=== PATIENT | male | born 1980 | race Asian ===

== ENCOUNTER 2017-01-05 10:45 | Inpatient (IN) | payer MEDICAID, SELFPAY ==
[~2017-01-05] VITALS: Ht 180.3 cm; Wt 76.3 kg
[2017-01-05] MEDS ORDERED: ALBUTEROL SULFATE 2.5 MG/0.5 ML INH NEB SOLN NEB ONE ×2 (11:15→21:15)
[2017-01-05 11:45] LABS: WHITE BLOOD COUNT 11.8 K/mm3 (4.0-10.0)
[2017-01-05 11:46] LABS: ADD MANUAL DIFFER NO; BASO % 0.4 % (0.0-1.0); DIFF SLIDE NUMBER 234; EOS # 0.1 K/mm3 (0.0-0.50); EOS % 0.8 % (0.0-3.0); LARGE UNSTAINED CELL # 0.1 K/mm3 (0.0-0.4); LYMPH # 1.7 K/mm3 (1.5-4.5); MEAN CORPUSCULAR HEMOGLOBIN 33.1 pg (27.0-33.0); MEAN CORPUSCULAR HGB CONC 33.4 g/dl (32.0-36.5); MEAN CORPUSCULAR VOLUME 99.3 fl (80.0-96.0); MONO # 0.5 K/mm3 (0.0-0.8); MONO % 4.4 % (0.0-5.0); NEUTROPHILS # 9.4 K/mm3 (1.8-7.7); NEUTROPHILS % 79.4 % (36.0-66.0); PLATELET COUNT, AUTOMATED 309 k/mm3 (150-450); RED CELL DISTRIBUTION WIDTH 12.9 % (11.5-14.5)
[2017-01-05 11:49] LABS: INR 1.11
--- NOTE | 2017-01-05 11:49 | REP ---
Chest two views HISTORY: Cough Comparison: 10/31/2013 Patchy density is present in the right lower lobe consistent with atelectasis or infiltrate. The left lung is clear. The heart is normal in size. The pulmonary vasculature is normal in appearance. The bony structure is intact. IMPRESSION: Right lower lobe atelectasis or infiltrate. Signed by Claudio Vázquez MD 01/05/2017 11:40 A
[2017-01-05 12:24] LABS: ALBUMIN 3.3 GM/DL (3.2-5.2); ALBUMIN/GLOBULIN RATIO 1.03 (1.00-1.93); ALKALINE PHOSPHATASE 92 U/L (45-117); ALT/SGPT 62 U/L (12-78); ANION GAP 11 MEQ/L (8-16); AST/SGOT 23 U/L (15-37); BILIRUBIN,DIRECT 0.8 MG/DL (0.0-0.2); BILIRUBIN,TOTAL 3.1 MG/DL (0.2-1.0); BLOOD UREA NITROGEN 13 MG/DL (7-18); CALCIUM LEVEL 8.5 MG/DL (8.5-10.1); CARBON DIOXIDE LEVEL 23 MEQ/L (21-32); CHLORIDE LEVEL 108 MEQ/L (98-107); CREATININE FOR GFR 1.15 MG/DL (0.70-1.30); GLOMERULAR FILTRATION RATE > 60.0 (>60); GLUCOSE, FASTING 118 MG/DL (70-105); POTASSIUM SERUM 4.4 MEQ/L (3.5-5.1); SODIUM LEVEL 142 MEQ/L (136-145); THYROXINE (T4) 10.6 UG/DL (4.5-12.0); TOTAL PROTEIN 6.5 GM/DL (6.4-8.2)
[2017-01-05] MEDS ORDERED: ISOVUE-370 76% 100ML VIAL (Q9967) As Ordered ONE (12:52)
--- NOTE | 2017-01-05 13:44 | REP ---
Clinical: Shortness of breath . Technique: Axial contrast enhanced images from the thoracic inlet to the upper abdomen using 100 ml Isovue 370 intravenous contrast material with multiplanar re-formations. Findings: Satisfactory enhancement of the pulmonary vasculature is achieved and no filling defects are identified to suggest pulmonary embolus. Further evaluation of the mediastinum cannot exclude cardiomegaly which may warrant further investigation. The bilateral lung rey demonstrate bilateral scattered alveolar infiltrates suggesting multifocal pneumonia. Associated mediastinal and hilar adenopathy is identified and likely reactive. Tracheobronchial tree is patent. No pleural effusion or pneumothorax. Surrounding musculoskeletal structures are intact. Impression: 1. No evidence for pulmonary embolus. 2. Moderate bilateral diffuse alveolar infiltrates and adenopathy suggest multifocal pneumonia and follow up to resolution is recommended. 3. Cannot exclude cardiomegaly for which consultation may be advised. Signed by Juan Antonio Schuster MD 01/05/2017 01:35 P
[2017-01-05] MEDS ORDERED: ACETAMINOPHEN TAB 650MG DOSE (2X325MG) PO PRN (15:15)
[2017-01-05] MEDS ORDERED: ONDANSETRON 4MG/2ML VIAL (J2405) IV PRN (15:15)
[2017-01-05] MEDS ORDERED: OXAZEPAM 15 MG CAP PO PRN (16:00)
--- NOTE | 2017-01-05 16:00 | HPEPDOC ---
General Date of Admission Jan 05, 2017 at 15:06 Attending Physician: DEBRA AVILA MD Chief Complaint The patient is a 36-year-old male admitted with a reason for visit of Multifocal Pneumonia. History of Present Illness 36-year-old male with no significant past medical history, and has not seen a primary care physician in the last 10+ years presents to the ER with a chief complaint of increased shortness of breath and cough productive of bloody sputum. The patient states that his symptoms began 6 weeks, when he noted feeling generalized fatigue and short of breath on exertion. However, over the last 2 weeks patient also began to notice lower extremity swelling. His symptoms culminated over the last 2 days when he developed a cough productive of bloody tinged sputum. The patient also states that he has been feeling increasingly short of breath when laying flat in bed. During this time, the patient denied any fevers, chills, chest pain, palpitations, abdominal pain, recent travel, sick contacts, or any nausea/vomiting/diarrhea. However, the patient does state that he does drink 1-2 shots of hard liquor and 4-5 beers about 4 times a week. In addition, the patient does state that his father has a history of congestive heart failure diagnosed at the age of 48. He also has a history of cardiac disease on his father's side. In the ER, a CT of the chest revealed multifocal pneumonia. In addition, cardiomegaly could not be ruled out. However, the patient's lab work consisted of a BNP of nearly 1500+, and a physical exam suggestive of fluid overload (2+ lower extremity pitting edema, and faint bibasilar crackles). The patient will be admitted to the hospitalist service for further evaluation and management. Home Medications No Active Prescriptions or Reported Meds Allergies Coded Allergies: No Known Drug Allergy (Verified Allergy, Unknown, 01/10/14) Past Medical History Medical History None Surgical History Tonsillectomy, hernia repair Family History Father diagnosed with congestive heart failure in 2000, at age 48. Grandfather also had cardiac disease history in addition to other members on father's side. Social History * Smoker: other (patient states that he has smoked about half a pack to pack a day of tobacco for the past 10+ years.) Alcohol: other (as noted in HPI.) Drugs: denies Recent Travel/Sick Contacts: Denies: Recent travel, Recent sick contacts Review of Symptoms Other systems 10 point review of systems negative unless otherwise specified in HPI. Physical Examination General Exam: Positive: Alert, Cooperative, No Acute Distress ENT Exam: Positive: Atraumatic, Mucous membr. moist/pink Neck Exam: Negative: JVD Chest Exam: Positive: Rales (faint bibasilar rales noted on auscultation) Heart Exam: Positive: Tachycardic, Normal S1, Normal S2 Telemetry: Positive: Sinus Abdomen Exam: Positive: Soft, Negative: Tenderness Extremity Exam: Positive: Swelling (2+ pitting edema noted from his lower extremities bilaterally.), Negative: Tenderness Psych Exam: Positive: Oriented x 3 Vital Signs Vital Signs Date Time Temp Pulse Resp B/P (MAP) Pulse Ox O2 Delivery O2 Flow Rate FiO2 01/05/17 10:56 01/05/17 10:46 97.2 128 19 100 Room Air Laboratory Data Labs 24H Laboratory Tests 2 01/05/17 11:22: White Blood Count 11.8H, Red Blood Count 5.13, Hemoglobin 17.0, Hematocrit 51.0 , Mean Corpuscular Volume 99.3H, Mean Corpuscular Hemoglobin 33.1H, Mean Corpuscular Hemoglobin Concent 33.4, Red Cell Distribution Width 12.9, Platelet Count 309, Neutrophils (%) (Auto) 79.4H, Lymphocytes (%) (Auto) 14.0L, Monocytes (%) (Auto) 4.4, Eosinophils (%) (Auto) 0.8, Basophils (%) (Auto) 0.4, Neutrophils # (Auto) 9.4H, Lymphocytes # (Auto) 1.7, Monocytes # (Auto) 0.5, Eosinophils # (Auto) 0.1, Basophils # (Auto) 0.0, Large Unclassified Cells % 1.0 , Large Unclassified Cells # 0.1, Prothrombin Time 14.5, Prothromb Time International Ratio 1.11, Anion Gap 11, Glomerular Filtration Rate > 60.0, Lactic Acid Level 2.5*H, Calcium Level 8.5, Aspartate Amino Transf (AST/SGOT) 23 , Alanine Aminotransferase (ALT/SGPT) 62, Alkaline Phosphatase 92, Total Bilirubin 3.1H, Direct Bilirubin 0.8H, Total Creatine Kinase 76, Creatine Kinase MB 2.1, Creatine Kinase MB Relative Index 2.76, Troponin I 0.02, B-Type Natriuretic Peptide 1480H, Total Protein 6.5, Albumin 3.3, Albumin/Globulin Ratio 1.03, Thyroid Stimulating Hormone (TSH) 1.640, Thyroxine (T4) 10.6 01/05/17 13:53: Urine Appearance CLEAR, Urine Color YELLOW, Urine pH 5.0, Urine Specific [place] 1.044, Urine Protein 1+H, Urine Glucose (UA) NEGATIVE, Urine Ketones NEGATIVE, Urine Urobilinogen 0.2, Urine Bilirubin NEGATIVE, Urine Leukocyte Esterase NEGATIVE, Urine Blood NEGATIVE, Urine Nitrite NEGATIVE, Urine WBC (Auto ) 0, Urine RBC (Auto) 0, Urine Hyaline Casts (Auto) 0, Urine Bacteria (Auto) NEGATIVE, Urine Squamous Epithelial Cells 0, Urine Mucus (Auto) SMALL, Urine Sperm (Auto) 01/05/17 15:26: CBC/BMP Laboratory Tests 01/05/17 11:22 Red Blood Count 5.13, Mean Corpuscular Volume 99.3 H, Mean Corpuscular Hemoglobin 33.1 H, Mean Corpuscular Hemoglobin Concent 33.4, Red Cell Distribution Width 12.9, Neutrophils (%) (Auto) 79.4 H, Lymphocytes (%) (Auto) 14.0 L, Monocytes (%) (Auto) 4.4, Eosinophils (%) (Auto) 0.8, Basophils (%) ( Auto) 0.4, Neutrophils # (Auto) 9.4 H, Lymphocytes # (Auto) 1.7, Monocytes # ( Auto) 0.5, Eosinophils # (Auto) 0.1, Basophils # (Auto) 0.0 Microbiology Microbiology 01/05/17 Blood Culture, Received Pending Plan / VTE VTE Prophylaxis Ordered?: Yes Plan Plan Multifocal Community-acquired pneumonia CTA of the chest noted Sputum cultures, MRSA screen, respiratory panel, urine Legionella/strep screening ordered Blood cultures ordered We will start the patient on Rocephin and azithromycin We will continue to monitor the patient's clinical status Possible underlying CHF The patient does have evidence of decompensated congestive heart failure on physical exam, as well as his clinical presentation. The patient does have risk factors which include family history of early onset cardiac disease, alcohol abuse, and history of tobacco use I will start him on a dose of Lasix 40 mg daily, which can be uptitrated as tolerated EKG in the ER reveals sinus tachycardia and nonspecific ST changes Initial troponin negative, we will serially trend 2-D echocardiogram ordered We will continue to monitor the patient on telemetry for now Alcohol use The patient states that he drinks 1-2 shots of hard liquor, with 4-5 beers most days of the week. His last alcoholic beverage was 24 hours ago, the patient denies any signs/ symptoms or history of alcohol withdrawal We will add when necessary Serax DVT prophylaxis Lovenox The patient will be admitted under the service of Dr. Avila, who will begin to follow the patient on 01/06/17 at 7 AM. LIZBETH DEWITT MD Jan 05, 2017 16:00
[2017-01-05] MEDS: FUROSEMIDE 40 MG TAB PO SCH (16:12)
[2017-01-05] MEDS: AZITHROMYCIN INJ 500 MG, VIAL MATE ADAPTER 1 EACH in D5W 250 ML IV SCH (16:12)
[2017-01-05 18:00] VITALS: BP 112/78
[2017-01-05] MEDS: cefTRIAXone SOD 1 GM in D5W MINI-BAG PLUS 50 ML IV SCH (18:17)
--- NOTE | 2017-01-05 18:31 | ECGEPIP ---
Stationary ECG Study [facility] - ED Test Date: 2017-01-05 Pat Name: ARTUR HWANG Department: Room: - Gender: M Hobber: : 1980 Requested By: CRISTY ROD PA-C Order Number: [id number] Reading MD: Gomez High Measurements Intervals [place] Rate: 124 P: 35 RI: 112 QRS: 91 QRSD: 102 T: -37 QT: 337 QTc: 484 Interpretive Statements SINUS TACHYCARDIA WITH SHORT RI INTERVAL LAE BORDERLINE RIGHT AXIS DEVIATION SEPTAL MYOCARDIAL INFARCTION, OF INDETERMINATE AGE NO PRIORS Electronically Signed On 01-05-2017 18:30:52 EDT by Gomez High
[2017-01-05 20:29] VITALS: BP 125/93
[2017-01-05 23:59] VITALS: BP 133/94
[2017-01-06] VITALS (9 sets, daily range): BP systolic 123–133; BP diastolic 73–94; PULSE 113
[2017-01-06] MEDS: cefTRIAXone SOD 1 GM in D5W MINI-BAG PLUS 50 ML IV SCH ×2 (05:06→17:10)
[2017-01-06 05:53] LABS: BASO # 0.1 K/mm3 (0.0-0.2); BASO % 0.6 % (0.0-1.0); EOS # 0.1 K/mm3 (0.0-0.50); EOS % 0.9 % (0.0-3.0); LARGE UNSTAINED CELL # 0.1 K/mm3 (0.0-0.4); LARGE UNSTAINED CELL % 1.3 % (0.0-4.0); LYMPH # 2.9 K/mm3 (1.5-4.5); LYMPH % 25.7 % (24.0-44.0); MEAN CORPUSCULAR HEMOGLOBIN 32.3 pg (27.0-33.0); MEAN CORPUSCULAR HGB CONC 32.2 g/dl (32.0-36.5); MEAN CORPUSCULAR VOLUME 100.4 fl (80.0-96.0); MONO # 0.6 K/mm3 (0.0-0.8); MONO % 5.9 % (0.0-5.0); NEUTROPHILS % 65.6 % (36.0-66.0); PLATELET COUNT, AUTOMATED 269 k/mm3 (150-450); RED CELL DISTRIBUTION WIDTH 13.2 % (11.5-14.5); WHITE BLOOD COUNT 10.6 K/mm3 (4.0-10.0)
[2017-01-06 06:13] LABS: ALBUMIN/GLOBULIN RATIO 0.94 (1.00-1.93); ALKALINE PHOSPHATASE 76 U/L (45-117); ALT/SGPT 47 U/L (12-78); ANION GAP 13 MEQ/L (8-16); AST/SGOT 15 U/L (15-37); BILIRUBIN,TOTAL 2.4 MG/DL (0.2-1.0); BLOOD UREA NITROGEN 14 MG/DL (7-18); CALCIUM LEVEL 8.4 MG/DL (8.5-10.1); CARBON DIOXIDE LEVEL 21 MEQ/L (21-32); CHLORIDE LEVEL 107 MEQ/L (98-107); CREATININE FOR GFR 1.15 MG/DL (0.70-1.30); GLOMERULAR FILTRATION RATE > 60.0 (>60); GLUCOSE, FASTING 93 MG/DL (70-105); MAGNESIUM LEVEL 1.9 MG/DL (1.8-2.4); POTASSIUM SERUM 4.5 MEQ/L (3.5-5.1); SODIUM LEVEL 141 MEQ/L (136-145); T UPTAKE 40 % (33-40); THYROXINE (T4) 8.2 UG/DL (4.5-12.0); TOTAL PROTEIN 6.2 GM/DL (6.4-8.2)
[2017-01-06] MEDS: FUROSEMIDE 40 MG TAB PO SCH (09:13)
[2017-01-06] MEDS: ENOXAPARIN 40 MG/0.4 ML SYRINGE (J1650) SC SCH (09:15)
[2017-01-06] MEDS ORDERED: SLF 3 ML SYR IV PRN (10:30)
[2017-01-06] MEDS ORDERED: NITROGLYCERIN 0.4 MG SUBL TABLET SL STA (10:58)
[2017-01-06] MEDS ORDERED: MAG SULF 1GM/100ML (MAG RUN) 1 GM in APPROPRIATE DILUENT 1 EA IV ONE ×2 (11:00→17:15)
[2017-01-06] MEDS ORDERED: FUROSEMIDE 40 MG/4 ML VIAL (J1940) IV SCH (11:00)
[2017-01-06] MEDS ORDERED: NITROGLYCERIN 0.4 MG SUBL TABLET SL PRN (11:00)
[2017-01-06] MEDS: SLF 3 ML SYR IV SCH (11:28)
--- NOTE | 2017-01-06 11:41 | REP ---
Clinical: Chest pain Comparison: 01/05/2017 . Findings: The mediastinum and cardiac silhouette are stable and within normal limits for portable technique. The lung rey are relatively stable and the previously noted subtle alveolar infiltrates cannot be excluded. No effusion or pneumothorax. Skeletal structures are intact. Impression: Subtle alveolar infiltrates primarily within the right lower lobe cannot be excluded. Signed by Juan Antonio Schuster MD 01/06/2017 11:33 A
[2017-01-06] MEDS: ALBUTEROL SULFATE 2.5 MG/0.5 ML INH NEB SOLN NEB PRN ×2 (13:54→19:33)
[2017-01-06] MEDS: FUROSEMIDE 40 MG/4 ML VIAL (J1940) IV SCH ×2 (15:00→20:49)
[2017-01-06] MEDS: AZITHROMYCIN INJ 500 MG, VIAL MATE ADAPTER 1 EACH in D5W 250 ML IV SCH (16:15)
--- NOTE | 2017-01-06 16:43 | ECGEPIP ---
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
--- NOTE | 2017-01-06 16:49 | ECGEPIP ---
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
[2017-01-06] MEDS ORDERED: MULTIVITAMINS/MINERALS THERAP 1 TAB PO ONE (17:15)
[2017-01-06] MEDS ORDERED: THIAMINE 100 MG TAB PO ONE (17:15)
[2017-01-06] MEDS ORDERED: FOLIC ACID 1 MG TAB PO ONE (17:15)
[2017-01-06 18:08] LABS: ANION GAP 10 MEQ/L (8-16); BLOOD UREA NITROGEN 17 MG/DL (7-18); CALCIUM LEVEL 8.7 MG/DL (8.5-10.1); CARBON DIOXIDE LEVEL 24 MEQ/L (21-32); CHLORIDE LEVEL 103 MEQ/L (98-107); CREATININE FOR GFR 1.26 MG/DL (0.70-1.30); GLOMERULAR FILTRATION RATE > 60.0 (>60); GLUCOSE, FASTING 162 MG/DL (70-105); POTASSIUM SERUM 4.3 MEQ/L (3.5-5.1); SODIUM LEVEL 137 MEQ/L (136-145)
[2017-01-07] VITALS (7 sets, daily range): BP systolic 106–134; BP diastolic 64–88
[2017-01-07] MEDS: SLF 3 ML SYR IV SCH ×4 (00:04→21:12)
[2017-01-07] MEDS: ALBUTEROL SULFATE 2.5 MG/0.5 ML INH NEB SOLN NEB PRN ×7 (00:13→23:52)
[2017-01-07] MEDS: FUROSEMIDE 40 MG/4 ML VIAL (J1940) IV SCH ×3 (03:00→14:46)
[2017-01-07] MEDS: cefTRIAXone SOD 1 GM in D5W MINI-BAG PLUS 50 ML IV SCH ×2 (04:49→17:10)
[2017-01-07 05:52] LABS: BASO # 0.1 K/mm3 (0.0-0.2); BASO % 1.1 % (0.0-1.0); EOS # 0.1 K/mm3 (0.0-0.50); EOS % 0.9 % (0.0-3.0); LARGE UNSTAINED CELL # 0.2 K/mm3 (0.0-0.4); LARGE UNSTAINED CELL % 1.8 % (0.0-4.0); LYMPH # 2.8 K/mm3 (1.5-4.5); LYMPH % 26.9 % (24.0-44.0); MEAN CORPUSCULAR HEMOGLOBIN 32.6 pg (27.0-33.0); MEAN CORPUSCULAR HGB CONC 33.2 g/dl (32.0-36.5); MEAN CORPUSCULAR VOLUME 98.2 fl (80.0-96.0); MONO # 0.7 K/mm3 (0.0-0.8); MONO % 6.8 % (0.0-5.0); NEUTROPHILS % 62.7 % (36.0-66.0); PLATELET COUNT, AUTOMATED 239 k/mm3 (150-450); RED CELL DISTRIBUTION WIDTH 13.2 % (11.5-14.5); WHITE BLOOD COUNT 9.6 K/mm3 (4.0-10.0)
[2017-01-07 06:09] LABS: ALBUMIN 2.8 GM/DL (3.2-5.2); ALBUMIN/GLOBULIN RATIO 0.85 (1.00-1.93); ALKALINE PHOSPHATASE 70 U/L (45-117); ALT/SGPT 43 U/L (12-78); ANION GAP 10 MEQ/L (8-16); AST/SGOT 20 U/L (15-37); BILIRUBIN,TOTAL 1.5 MG/DL (0.2-1.0); BLOOD UREA NITROGEN 16 MG/DL (7-18); CALCIUM LEVEL 8.6 MG/DL (8.5-10.1); CARBON DIOXIDE LEVEL 25 MEQ/L (21-32); CHLORIDE LEVEL 106 MEQ/L (98-107); CREATININE FOR GFR 1.04 MG/DL (0.70-1.30); GLOMERULAR FILTRATION RATE > 60.0 (>60); GLUCOSE, FASTING 101 MG/DL (70-105); POTASSIUM SERUM 3.7 MEQ/L (3.5-5.1); SODIUM LEVEL 141 MEQ/L (136-145); TOTAL PROTEIN 6.1 GM/DL (6.4-8.2)
[2017-01-07] MEDS ORDERED: POTASSIUM CHLORIDE 10 MEQ SR TABLET PO ONE ×2 (06:15→09:00)
[2017-01-07 06:33] LABS: MAGNESIUM LEVEL 1.9 MG/DL (1.8-2.4)
--- NOTE | 2017-01-07 08:29 | REP ---
Clinical: Shortness of breath. Comparison: 01/06/2017. Findings: Mediastinum and cardiac silhouette are within normal limits. A subtle right lower lobe infiltrate cannot be excluded as well as subtle alveolar infiltrate involving the right upper lung zone and left perihilar region. Clinical correlation is recommended. No effusion. No pneumothorax. Skeletal structures intact. Impression: Subtle scattered opacities suggesting multifocal infiltrates similar to prior examination. Signed by Juan Antonio Schuster MD 01/07/2017 08:21 A
[2017-01-07] MEDS: FOLIC ACID 1 MG TAB PO SCH (08:40)
[2017-01-07] MEDS: ENOXAPARIN 40 MG/0.4 ML SYRINGE (J1650) SC SCH (08:40)
[2017-01-07] MEDS: MULTIVITAMINS/MINERALS THERAP 1 TAB PO SCH (08:40)
[2017-01-07] MEDS: THIAMINE 100 MG TAB PO SCH (08:40)
[2017-01-07] MEDS ORDERED: MAG SULF 1GM/100ML (MAG RUN) 1 GM in APPROPRIATE DILUENT 1 EA IV ONE (09:00)
[2017-01-07] MEDS ORDERED: RAMIPRIL 1.25 MG CAP PO SCH (09:00)
--- NOTE | 2017-01-07 10:52 | IPN ---
DATE: 01/07/2017 Yesterday, the patient complained of chest tightness and diaphoresis when the azithromycin was being given. There was no wheezing, no rales, no rigors, fever, chills, hypotension. Telemetry was unremarkable. Remains in sinus tachycardia. Azithromycin was discontinued. This morning, the patient denies any complaints of chest pain, shortness of breath, palpitations, lightheadedness. Overnight, telemetry again noted 13 beats of nonsustained ventricular tachycardia (v tach). The patient was asymptomatic. Blood pressure was well maintained with systolic pressures of 120s to 130s. The patient admits to having a family history of congestive heart failure in his father who was diagnosed in his 40s. He currently denies any fever or chills overnight. No productive cough. Shortness of breath has improved. Lower extremity has improved. Vital Signs: Temperature 96.9, pulse 114, sinus tachycardia. Respiratory rate 18. Blood pressure 126/88, 96% on room air. Generally, the patient is awake, alert, oriented times three, answering questions appropriately. He is anicteric. No jaundice. No jugular venous distention. No thyromegaly. No cervical lymphadenopathy. No neck rigidity. Moist mucous membranes. Tongue is midline. No use of respiratory accessory muscles. Able to speak in full sentences. Heart: S1, S2, sinus tachycardia. No murmurs, rubs or gallops. Lungs are diminished. Fine crackles at the bases. Abdomen is soft, nontender, nondistended. Positive bowel sounds times four quadrants. No hepatosplenomegaly, rebound, guarding. No signs of spider angiomata. No palmar erythema. Extremities: Trace edema bilaterally. LABORATORY DATA: White count 9.6, hemoglobin 15, hematocrit 45, platelet count 239. Sodium 141, potassium 3.7, chloride 106, bicarbonate 25, BUN 16, creatinine 1.04, glucose 101, calcium 8.6, magnesium 1.9, total bilirubin 1.5, AST 20, ALT 43, alkaline phosphatase of 70, total protein 6.1, albumin 2.8, BNP is 1100. Respiratory panel is negative. Methicillin-resistant Staphylococcus aureus (MRSA ) is negative. Sputum culture: Normal dvein. Blood culture: No growth after [address] chest: PE protocol 01/05/2017. No evidence of pulmonary embolism. Moderate bilateral diffuse alveolar infiltrates and adenopathy suggesting multifocal pneumonia. Followup to resolution is recommended. Cannot exclude cardiomegaly for which consultation may be advised. ASSESSMENT AND PLAN: This is a 36-year-old male with a history of alcohol abuse, with a family history of congestive heart failure in his father in his 40s and grandfather on the father's side, presents to the emergency room with ongoing dyspnea, bloody sputum for about 6 weeks with no recent travel. He denied any fever, chills, chest pain, abdominal pain. He had been admitted for multifocal pneumonia, started on intravenous ceftriaxone and azithromycin with complaints of diaphoresis and chest tightness with azithromycin, no wheezing, stridor, rash or significant respiratory distress. Azithromycin has been discontinued. He was found to have cardiomegaly and BNP level of 1100. The patient was started on Lasix diuresis, has been diuresing well with improvement in shortness of breath. Echo is still pending. CURRENT ISSUES: 1. Multifocal community-acquired pneumonia. CT of the chest was negative for pulmonary embolism (PE). Sputum culture showed normal devin. MRSA screen is negative. Respiratory panel is negative. Urine Legionella and urine Streptococcal antigen have been ordered. Blood cultures are negative. Patient had been placed initially on Rocephin and azithromycin. The patient had complaints of chest tightness with azithromycin, which has since been discontinued. He is currently only on ceftriaxone. He has been afebrile with normalization of his white count and lactic acid. 2. Congestive heart failure (CHF). Unknown ejection fraction with history of alcohol abuse and family history of congestive heart failure at an early age in his father, who was in his 40's when he developed congestive heart failure and was apparently not ischemic in nature. His cardiac markers are negative. He has no signs of high blood pressure. He is currently being diuresed with Lasix 40 mg every 6 hours with improvement in his respiratory status. Strict intake and output, daily weight and fluid restriction. Cardiac rehabilitation as an outpatient. He has unknown ejection fraction. We have ordered an echocardiogram in light of persistent nonsustained ventricular tachycardia on telemetry. We have optimized his potassium and magnesium. Will repeat a metabolic panel and magnesium later this evening in light of the Lasix diuresis and arrhythmias on the monitor. Depending on the results of the echocardiogram, we may need cardiology involved. If his ejection fraction is less than 40%, most likely will need evaluation with stress test as an outpatient and optimal medical therapy once he is euvolemic with angiotensin-converting enzyme (RALF) inhibitor if blood pressure permits, beta blockade and continued diuretic. Lipid panel is unremarkable. No need for statins at the moment. 3. Alcohol abuse. The patient remains tachycardic. He currently has no asterixis on exam. No stigmata of liver disease. The patient has been given multivitamin, thiamine, folate to be scheduled daily and as needed Serax for his comfort. Delirium tremens precautions. 4. Deep vein thrombosis (DVT) prophylaxis with Lovenox. DISPOSITION: The patient is anxious to go home. He states that he does not have any vacation time at work and will need to be at work on Monday. I have reiterated to him that at this time with his ejection fraction being unknown and congestive heart failure, which is new onset, we would need this information to decide if it is diastolic or systolic failure. If he does develop systolic failure with ejection fraction less than 40%, he will need to be reevaluated as an outpatient with a stress test to rule out ischemic heart disease. If no significant valvular disease is noted and he has an ejection fraction of 50% and higher, issues may be diastolic dysfunction. Then, the patient may be discharged home with cardiac rehabilitation with outpatient followup with cardiology once he is euvolemic. Therefore, will order an echocardiogram to determine the next course of action. This has all been explained to the patient. His antibiotics can be changed to Avelox at discharge or 750 mg of Levaquin. Addendum 12:21pm: per Dr. De La Torre, ECHO EF 10-20% mild to moderate MR, mild to moderate TR. Cardiology will be consulted for chf mgt, and timing of Ischemic heart disease workup either with stress test or cardiac cath. will need optimization with RALF inh, beta calvin once euvolemic. Defer to cardiology to decide whether pt needs emergent transfer for cath. MARCELLUS
--- NOTE | 2017-01-07 12:06 | ECHO ---
DATE OF PROCEDURE: 01/06/2017 DATE OF : 1980 AGE: 36 REFERRING PROVIDER: Dr. Radha Avila PATIENT LOCATION: Room 3211 REASON FOR THE ECHOCARDIOGRAM: Shortness of breath, nonsustained ventricular tachycardia. 2D MEASUREMENTS: IVS: 0.8 cm LV: 6.6 cm LVPW: 0.6 cm LA: 4.6 cm Aorta: 2.9 cm IVC: 2.5 cm RV: 2.6 cm Ascending aorta: 2.6 cm DOPPLER MEASUREMENTS: Mitral E: 0.59 Mitral A: 0.37 Maximum tricuspid valve velocity: 3.1 m/s 2D COMMENTS: 1. Moderately enlarged left ventricle with severe diffuse hypokinesis and a severely depressed global left ventricular systolic function. Left ventricular systolic ejection fraction is estimated at 10-20%. 2. Mildly dilated left atrium. The right atrium may be mildly enlarged. Normal right ventricle. 3. The atrial septum appeared to be normal without evidence of defect or shunt. 4. Normal aortic root. 5. Trace pericardial effusion noted, no evidence of cardiac tamponade. 6. Normal mitral valve. Minimally calcified aortic valve with normal leaflet excursion. Normal tricuspid valve and pulmonic valve. The proximal pulmonary artery branches appear to be normal. 7. The inferior vena cava was dilated, central venous pressure is most likely elevated. DOPPLER: It detects mild to moderate mitral regurgitation, moderate tricuspid regurgitation and trace pulmonic regurgitation. The calculated pulmonary artery systolic pressure varied between 40 to 50 mmHg. IMPRESSION: 1. Severe left ventricular systolic dysfunction with severe diffuse hypokinesis and a moderately enlarged left ventricle. 2. Aortic valve sclerosis without stenosis or aortic regurgitation. 3. Mild to moderate mitral regurgitation with mildly enlarged left atrium. 4. Moderate tricuspid regurgitation with moderate pulmonary hypertension and probably mildly enlarged right atrium. 5. There are findings consistent with elevated central venous pressure. 6. The case was discussed with his primary hospitalist. MARCELLUS
[2017-01-07] MEDS: CARVedilol 3.125 MG TAB PO SCH ×2 (12:45→21:12)
[2017-01-07] MEDS: SPIRONOLACTONE 12.5MG PER 1/2 TABLET PO SCH (12:45)
[2017-01-07 13:07] LABS: GAMMA GLUTAMYLTRANSPEPTIDASE 182 U/L (15-85)
[2017-01-07] MEDS: ENTRESTO 24-26MG TABLET (SACUBITRIL/VALSARTAN) PO SCH ×2 (14:55→21:12)
[2017-01-07] MEDS ORDERED: FUROSEMIDE 20 MG/2 ML VIAL (J1940) IV ONE ×2 (15:00→15:30)
[2017-01-07 18:51] LABS: ANION GAP 12 MEQ/L (8-16); BLOOD UREA NITROGEN 15 MG/DL (7-18); CALCIUM LEVEL 8.8 MG/DL (8.5-10.1); CARBON DIOXIDE LEVEL 24 MEQ/L (21-32); CHLORIDE LEVEL 104 MEQ/L (98-107); CREATININE FOR GFR 1.02 MG/DL (0.70-1.30); GLOMERULAR FILTRATION RATE > 60.0 (>60); GLUCOSE, FASTING 101 MG/DL (70-105); POTASSIUM SERUM 4.7 MEQ/L (3.5-5.1); SODIUM LEVEL 140 MEQ/L (136-145)
--- NOTE | 2017-01-07 20:27 | CR ---
DATE OF CONSULTATION: 01/07/2017 REFERRING PROVIDER: Dr. Radha Avila. REASON FOR CONSULTATION: Cardiomyopathy. HISTORY OF PRESENT ILLNESS: A 36-year-old male was admitted on with increasing shortness of breath, cough and pedal edema. He was being treated for pneumonia, he was found to have bilateral pulmonary infiltrates. He was being monitored in the progressive care unit (PCU) on intravenous (IV) antibiotics and he was found on telemetry to have nonsustained ventricular tachycardia. He underwent an echocardiogram and this was done this morning. It revealed a severely depressed global left ventricular systolic function. Cardiology consult was called. When I saw Mr. Fabián Martínez, he was sitting up in bed in no acute distress at rest. He has been having shortness of breath for the past four weeks, and this has increased in severity and he had developed bilateral pedal edema, orthopnea. He denies any palpitations but does complain that his heart goes fast. He denies any fever or chills. He has no nausea, vomiting, diarrhea, melena or hematemesis. He stated that his pedal edema has improved significantly and almost gone. His cough also has improved significantly, and he is able to sleep better. He thinks that he his having much less orthopnea. Since hospitalization, he has been on IV Lasix. He denies any nausea, vomiting, diarrhea, melena or hematemesis. He has no dysuria, polyuria, or hematuria. He has no focal manifestation. There is no prior history of hypertension, hyperlipidemia, diabetes mellitus, kidney disease, thyroid disorders. There is no history of coronary artery disease, prior history of cardiomyopathy, prior history of pneumonia, significant valvular heart disease, atrial fibrillation, sudden cardiac . PAST MEDICAL HISTORY: Positive for tonsillectomy and hernia repair many years ago; otherwise, unremarkable. FAMILY HISTORY: Positive for heart disease. His father was diagnosed in his 30s with congestive heart failure and was found to have a weak heart, but on treatment, his heart function has been lately normal. SOCIAL HISTORY: The patient lives with his and he has little children who live in the area. Prior to coming to the hospital, he was smoking a half pack a day of cigarettes, and he thinks he was drinking more than needed. He denies any illicit drugs. ALLERGIES: No known drug allergies. CURRENT MEDICATIONS: - multivitamin one tablet by mouth daily - thiamine 100 mg by mouth daily - folic acid 1 mg by mouth daily - Lasix 40 mg IV every six hours - nitroglycerin sublingual as needed for chest pain - formoterol nebulizer 2.5 mg every four hours as needed for shortness of breath and wheezing - Lovenox 40 mg subcutaneous daily - ceftriaxone 1 gram IV every 12 hours - Serax 15 mg every eight hours as needed for anxiety and withdrawal - Tylenol 650 mg as needed for mild pain or fever - ondansetron 4 mg IV every six hours as needed for nausea or vomiting PHYSICAL EXAMINATION: The patient is alert and oriented in no acute distress at rest, and his last vital signs when I saw him revealed a blood pressure of 118/88 with a pulse of 123, respiratory rate 18, and his maximum temperature is 96.8 degrees Fahrenheit with an oxygen saturation at 98% on room air. On , he was in a positive fluid balance of 785 mL, and for 01/05/2017, he was in a negative fluid balance of 1.4 liters. His weight on admission was 82.9 kg, and today is 78.3 kg. HEENT: Head is normocephalic and conjunctivae are pink. Mucous membranes are moist. NECK: Supple. I could not appreciate any jugular venous distention (JVD). LUNGS: Do not reveal any wheezing or crackles. HEART: Revealed normal S1, S2 without gallops. Mildly tachycardic. The body mass index (BMI) is displaced inferiorly and laterally. There is no rub. There is a systolic murmur grade 1-2 over 6 at the lower left sternal border and at the apex without any significant radiation. ABDOMEN: Unremarkable. EXTREMITIES: Reveal no pedal edema. NEUROLOGIC: Grossly is negative for focal deficit. LABORATORY DATA: CBC done today revealed a WBC of 9.6, hemoglobin 15.1, hematocrit 45.6, and platelets 239,000. On admission, WBC was 11.8. BMP done today revealed a sodium of 141, potassium 3.7, chloride 106, CO2 25, BUN 16, creatinine 1.04, GFR more than 60, fasting glucose 101, calcium 8.6, magnesium 1.9. Liver enzymes reveal a total bilirubin of 1.5, AST 20, ALT 42, alkaline phosphatase 70, GGT 182, total protein 6.1, albumin 2.8. Serum BNP on admission was 1480. Serum troponin I has been negative at 1.02. Thyroid function test on , revealed a TSH of 1.64. Serum lactic acid on admission was 2.5. Serum lactic acid done on 01/06/2017, is 1.7. Lipid profile on 01/06/2017, revealed a total cholesterol of 165, triglycerides 106, LDL 104.8, HDL 39, and total cholesterol/HDL ratio of 4.2. PT on admission was 14.5 with an INR of 1.11. Urinalysis revealed +1 protein, otherwise unremarkable. Electrocardiogram on admission revealed normal sinus rhythm, tachycardic at 124 beats per minute, Q wave in leads V1 and V2, borderline right axis deviation. Nonspecific ST-T abnormalities and probable left ventricular hypertrophy (LVH). Electrocardiogram on 01/06/2017, at 7:51:41 revealed sinus tachycardia at 104 beats per minute and isolated PVCs, left atrial abnormalities, borderline low-voltage QRS complexes in the limb leads, poor R-wave progression, nonspecific ST-T abnormalities, but borderline right axis deviation. No remarkable changes but slower heart rate. Electrocardiogram done on , at 11:02:48, revealed also sinus tachycardia at 113 beats per minute, left atrial enlargement, probable right atrial enlargement, borderline low voltage QRS complexes in the limb leads, right axis deviation, poor R-wave progression versus prior septal infarct, nonspecific S1, S2 abnormalities. No significant changes from last tracing. Telemetry strips were reviewed and revealed sinus rhythm, tachycardic with two runs of ventricular tachycardia of 6 and 8 beats. Chest x-ray on admission revealed right lower lobe atelectasis versus infiltrates, borderline cardiomegaly. CT angiogram done on 01/05/2017, revealed no evidence of pulmonary embolism, but moderate bilateral diffuse alveolar infiltrates suggestive of multifocal pneumonia and possible cardiomegaly. Chest x-ray done on 01/06/2017, revealed some alveolar infiltrates in the right lower lobe. Chest x-ray done on 01/07/2017, revealed a possible subtle scattered opacities suggestive of multifocal infiltrates similar to prior examinations. IMPRESSION: 1. Decompensated congestive heart failure secondary to left ventricular systolic dysfunction, severe, due probably to primary cardiomyopathy. Underlying coronary artery disease etiology will need to be ruled out. The patient seems to be stable and well compensated at this present time. This is being diagnosed now and previously not on any medication. Case was discussed with the hospitalist and he will be started on treatment. He was started on carvedilol, spironolactone, and Entresto. His diuretic will be decreased, the furosemide. He has not been receiving it, and the last time was probably yesterday. He will be discharged with a life vest and this was discussed with him. I am thinking about proceeding with a cardiac catheterization and also this was discussed with him. I will monitor him along with you while in the hospital and I will see him upon discharge at the office. This also was discussed with his sister, his healthcare proxy. 2. Pneumonia, and this is being addressed. 3. History of smoking. The patient stated he will no longer smoke. He also stated he will stop drinking alcohol. 4. Nonsustained ventricular tachycardia, he will be monitored, and if he continues to have those episodes, he will be started on amiodarone. The plan is to discharge him on a life vest. It is most likely related to his underlying cardiomyopathy. It was a pleasure to participate in the care of . Fabián Martínez for his underlying cardiac condition. He appears to be stable from a cardiac point of view. Please do not hesitate to call if any questions. MARCELLUS
[2017-01-08 04:00] VITALS: BP 118/76
[2017-01-08] MEDS: ALBUTEROL SULFATE 2.5 MG/0.5 ML INH NEB SOLN NEB PRN ×4 (04:18→19:37)
[2017-01-08 05:10] LABS: BASO % 0.4 % (0.0-1.0); EOS # 0.2 K/mm3 (0.0-0.50); EOS % 1.4 % (0.0-3.0); LARGE UNSTAINED CELL # 0.3 K/mm3 (0.0-0.4); LARGE UNSTAINED CELL % 2.2 % (0.0-4.0); LYMPH # 2.9 K/mm3 (1.5-4.5); LYMPH % 21.6 % (24.0-44.0); MEAN CORPUSCULAR HEMOGLOBIN 32.1 pg (27.0-33.0); MEAN CORPUSCULAR HGB CONC 32.4 g/dl (32.0-36.5); MEAN CORPUSCULAR VOLUME 99.1 fl (80.0-96.0); MONO # 0.5 K/mm3 (0.0-0.8); MONO % 4.3 % (0.0-5.0); NEUTROPHILS # 8.7 K/mm3 (1.8-7.7); NEUTROPHILS % 70.2 % (36.0-66.0); PLATELET COUNT, AUTOMATED 255 k/mm3 (150-450); RED CELL DISTRIBUTION WIDTH 13.1 % (11.5-14.5); WHITE BLOOD COUNT 12.3 K/mm3 (4.0-10.0)
[2017-01-08 05:21] LABS: ALBUMIN/GLOBULIN RATIO 0.83 (1.00-1.93); ALKALINE PHOSPHATASE 74 U/L (45-117); ALT/SGPT 52 U/L (12-78); ANION GAP 11 MEQ/L (8-16); AST/SGOT 33 U/L (15-37); BLOOD UREA NITROGEN 17 MG/DL (7-18); CALCIUM LEVEL 8.8 MG/DL (8.5-10.1); CARBON DIOXIDE LEVEL 24 MEQ/L (21-32); CHLORIDE LEVEL 106 MEQ/L (98-107); CREATININE FOR GFR 1.13 MG/DL (0.70-1.30); GLOMERULAR FILTRATION RATE > 60.0 (>60); GLUCOSE, FASTING 98 MG/DL (70-105); POTASSIUM SERUM 4.4 MEQ/L (3.5-5.1); SODIUM LEVEL 141 MEQ/L (136-145); TOTAL PROTEIN 6.6 GM/DL (6.4-8.2)
[2017-01-08] MEDS: cefTRIAXone SOD 1 GM in D5W MINI-BAG PLUS 50 ML IV SCH ×2 (05:28→18:11)
[2017-01-08] MEDS: SLF 3 ML SYR IV SCH ×3 (05:29→20:43)
[2017-01-08 08:00] VITALS: BP 119/80
[2017-01-08] MEDS: SPIRONOLACTONE 12.5MG PER 1/2 TABLET PO SCH (08:21)
[2017-01-08] MEDS: ENOXAPARIN 40 MG/0.4 ML SYRINGE (J1650) SC SCH (08:21)
[2017-01-08] MEDS: ENTRESTO 24-26MG TABLET (SACUBITRIL/VALSARTAN) PO SCH ×2 (08:21→20:42)
[2017-01-08] MEDS: MULTIVITAMINS/MINERALS THERAP 1 TAB PO SCH (08:22)
[2017-01-08] MEDS: FOLIC ACID 1 MG TAB PO SCH (08:22)
[2017-01-08] MEDS: THIAMINE 100 MG TAB PO SCH (08:22)
[2017-01-08] MEDS: CARVedilol 3.125 MG TAB PO SCH (08:23)
--- NOTE | 2017-01-08 09:07 | ECGEPIP ---
Stationary ECG Study [facility] Test Date: 2017-01-07 Pat Name: ARTUR HWANG Department: Room: [place] [address] Gender: M [employer] Room: : 1980 Requested By: DEBRA Mota Order Number: [id number] Reading MD: Riccardo Herrera Measurements Intervals [place] Rate: 116 P: 37 SC: 120 QRS: 96 QRSD: 102 T: -76 QT: 353 QTc: 492 Interpretive Statements Sinus tachycardia with a PVC Low QRS complex voltage in the limb leads Anteroseptal [place], age indeterminate Nonspecific ST-T wave abnormalities No significant change when compared to prior tracing of 01/06/2017 Electronically Signed On 01-08-2017 9:07:09 EDT by Riccardo Herrera
[2017-01-08] MEDS ORDERED: FUROSEMIDE 20 MG/2 ML VIAL (J1940) IV ONE (11:00)
[2017-01-08 12:00] VITALS: BP 103/64
--- NOTE | 2017-01-08 14:05 | IPN ---
DATE: 01/08/2017 Mr. Fabián Martínez was seen earlier this morning, he was sitting up in bed in no acute distress at rest. There was no orthopnea or paroxysmal nocturnal dyspnea (PND). He denied any chest pain, palpitations. He has been ambulating in the room. He has no cough or hemoptysis. He was initially admitted on 01/05/2017 with progressive shortness of breath and was found to have findings that may be related to pneumonia on his chest x-ray and he was started on IV antibiotics. While on telemetry, he was found to have once of ventricular tachycardia. He underwent an echocardiogram on 01/07/2017 and it revealed severely depressed global ventricular systolic function. He was started on current cardiac medications. He has been on furosemide prior to that and he has responded. When I saw him, he appeared to be compensated. PHYSICAL EXAMINATION: The patient is alert and awake in no acute distress at rest and his vital signs this morning revealed a blood pressure of 119/80 with a pulse of 96, respirations 18 and his maximal temperature is 98.5 degrees Fahrenheit, oxygen saturation of 95% on room air. He has a negative fluid balance of 1.8 liter for 01/07/2017. Prior to that on 01/06/2017, he had a positive fluid balance of 785 mL. EXAMINATION OF THE HEAD: Normocephalic, atraumatic. NECK: Supple. No jugular venous distension (JVD). LUNGS: The lungs did not reveal any wheezing or crackles. HEART EXAMINATION: Reveal normal S1, S2, S4 gallops. The point of maximal impulse (PMI) is distant inferiorly and laterally. There is no rub. There is systolic murmur grade I to 2/6 at the lower left sternal border without any significant radiation. ABDOMEN: Soft and nontender. EXTREMITIES: Revealed no pitting edema. Peripheral pulses, dorsalis pedis are +2 and equal. NEUROLOGICAL EXAMINATION: Negative for focal deficient. LABORATORY: Complete blood count (CBC) on 01/08/2017 revealed a white blood count (WBC) of 12.8, hemoglobin is 16.7, hematocrit 51.5 and platelets 255,000. Basic metabolic panel (BMP) revealed a sodium of 141, potassium 4.4, chloride 106, CO2 24, BUN 17, creatine 1.13, glomerular filtration rate (GFR) more than 60 and calcium 8.8. Magnesium is 2.0. Liver enzymes revealed a total bilirubin of 2.0, AST 33, ALT 52, alkaline phosphatase 74, total protein 6.6, albumin 3.3. Telemetry revealed normal sinus rhythm, left tachycardia. There is once of nonsustained ventricular tachycardia. IMPRESSION: 1. Status post decompensated congestive heart failure secondary to left ventricular systolic dysfunction. The patient has no history of hypertension, hyperlipidemia, diabetes mellitus. He said that he is a smoker and said that he will not go back to smoking. He used to drink alcohol and said that he will not drink alcohol. He is well aware that can cause his cardiomyopathy. His father did have a history of cardiomyopathy and his heart function has improved. Will continue current medications. Today, again, I will give him another dose of IV furosemide/Lasix. Will monitor his electrolytes and kidney function. Isabella, will be contacted for a life vest and this was discussed with him, he has agreed. 2. Possible pneumonia and this is being addressed. 3. History of smoking and he said that he is not going to smoke. He also said that he will not back to drinking alcohol. 4. Nonsustained ventricular tachycardia. He will be discharged on a life vest. Will continue telemetry and I will increase his beta blockers, carvedilol. He is well aware that he might need an implantable cardioverted defibrillator (ICD) if his left ventricular systolic function does not improve. MARCELLUS
[2017-01-08 16:00] VITALS: BP 108/70
--- NOTE | 2017-01-08 16:15 | IPN ---
DATE: 01/08/2017 SUBJECTIVE: Patient seen and examined at the bedside. Chart has been reviewed. He denies any fevers, chills, cough, shortness of breath. Patient feels well this morning, is ambulating well up and down the hallway yesterday without much difficulty. Telemetry remains with sinus rhythm. No repeat episodes of nonsustained ventricular tachycardia overnight. Blood pressure has been well maintained. He has no new complaints. Tolerating his diet well. No nausea, vomiting or abdominal pain. Per nursing, patient had mistakenly flushed his urine output and could not be documented overnight, so input and output (I and O) may be slightly lower than the actual value. OBJECTIVE: Temperature 98.4, pulse 96, respiratory rate 18, blood pressure 119/80, 95% on room air. INPUT AND OUTPUT: Input of 180, output of 2025, negative 1845. Current weight is 79 kg from previous admission weight of 82.9 kg. GENERAL: Patient is awake, alert, oriented times three. Answering questions appropriately. No significant lymphadenopathy, thyromegaly. Pupils were reactive to light. Extraocular muscles intact. No pharyngeal erythema. No tonsillar exudate. No jugular venous distention. LUNGS: Clear to auscultation. No wheezing, rales or rhonchi. HEART: S1, S2. Sinus tachycardia. Mid systolic ejection murmur noted in the left lower sternal border as well as a diastolic murmur in the apical region, radiating to the axilla. ABDOMEN: Soft, nontender, nondistended. Positive bowel sounds. EXTREMITIES: No pitting edema. LABORATORY DATA: White count 12.3, hemoglobin 16, hematocrit 51, platelet count 255. 70% neutrophils. Sodium 141, potassium 4.5, chloride 106, bicarbonate 24, BUN 17, creatinine 1.13, glucose 98. MICROBIOLOGY: Respiratory 01/05/2017: Negative. Methicillin-resistant Staphylococcus aureus (MRSA) screen: Not identified. Sputum culture: Normal devin present. Blood culture: Negative after 48 hours. Chest X-ray 01/07/2017 showed multifocal infiltrates similar to prior examination. Echocardiogram, read by Dr. Aguila De La Torre, on , shows moderately enlarged left ventricle with severe diffuse hypokinesis. Severely depressed global left ventricular systolic function with severe diffuse hypokinesis, moderately enlarged left ventricle. Left ventricular systolic function estimated to be 10-20%. Mildly dilated left atrium, normal right ventricle, trace pericardial effusion. No evidence of cardiac tamponade. Normal mitral valve, normal tricuspid valve. Trace pulmonic regurgitation, calculated PA pressure 40-50 mmHg, with moderate tricuspid regurgitation and moderate pulmonary hypertension. Mild to moderate mitral regurgitation with mildly enlarged left atrium. ASSESSMENT AND PLAN: This is a 36-year-old male with history of alcohol abuse, family history of congestive heart failure (CHF) with his father in his 40s and grandfather on the father's side, presented to the emergency room (ER) with ongoing dyspnea, bloody sputum for six weeks with no recent travel. Denied fever, chills, chest pain, abdominal pain, admitted for multifocal pneumonia. Started on intravenous (IV) ceftriaxone, azithromycin. Complains of diaphoresis, chest tightness with azithromycin, but no wheezing, stridor, rash or significant respiratory distress. Azithromycin has been discontinued. He was found to have cardiomegaly on CT of the chest with brain natriuretic peptide (BNP) level of 1100. Patient was started on Lasix diuresis, was diuresing well with improvement of shortness of breath. Echocardiogram shows ejection fraction of 10-20% by visual estimate with mild to moderate mitral regurgitation and mild to moderate tricuspid regurgitation. Dr. De La Torre has been consulted from cardiology to assist in congestive heart failure (CHF) management, systolic dysfunction. This patient has had nonsustained ventricular tachycardia, about 13 beats, on telemetry 48 hours ago. Currently on Coreg 6.25 mg twice a day, valsartan 1 tablet twice a day, and spironolactone. Patient has diuresed quite well with plans for defibrillator vest prior to discharge. CURRENT ISSUES: 1. Congestive heart failure, new onset. Acute systolic dysfunction with ejection fraction of 10-20%. Patient has been placed on Coreg 2.125 mg twice a day, spironolactone 12.5 mg daily, sacubitril/valsartan one tablet by mouth twice a day. Patient has had no acute ischemia or a positive troponin during this admission. Defer to Dr. De La Torre for evaluation for coronary artery disease with an angiogram as outpatient. Patient will need a defibrillator in light of the recent nonsustained ventricular tachycardia noted on telemetry and severely depressed left ventricular systolic dysfunction of 10-20%. This has all been explained to the patient. 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 I have advised him that this would stress his heart and would cause further decompensation and heart failure; therefore, I have advised him to proceed with cardiac testing prior to returning to work. He would not be cleared to go back to his previous employment at this time. 2. Multifocal community-acquired pneumonia with reaction or azithromycin with complaints of diaphoresis. Patient has been kept on ceftriaxone with no fevers or chills and improved white count. Currently 9.6 yesterday, slightly increased at 12.3 today. Sputum culture is negative. Respiratory syncytial virus (RSV) panel is also negative. Will review with Dr. Nicola Rodriguez, infectious disease, in the morning for possible atypical coverage. Currently not on any. He will need a quinolone for this, but with risk of increasing his QT interval. Will discuss with Dr. Rodriguez in the morning. 3. Alcohol abuse. Patient has no signs of acute withdrawal. No stigmata of liver disease. He does have slightly elevated bilirubin level. He has been given multivitamin, thiamin, folate scheduled daily, as needed Serax for his comfort and delirium tremens precautions. 4. Deep venous thrombosis (DVT) prophylaxis with Lovenox. DISPOSITION: Will defer to Dr. De La Torre for further titration of medications and clearance prior to discharge home, as the patient does have a recent documentation of low ejection fraction of 10-20% with nonsustained ventricular tachycardia. He will need a defibrillator vest prior to discharge to be arranged by cardiology, as well as an ischemic workup with a coronary angiogram at some point.
[2017-01-08 20:00] VITALS: BP 115/76
[2017-01-08] MEDS ORDERED: CARVedilol 6.25 MG TAB PO SCH (21:00)
[2017-01-09] VITALS: BP 100/57
[2017-01-09 04:00] VITALS: BP 114/69
[2017-01-09] MEDS: ALBUTEROL SULFATE 2.5 MG/0.5 ML INH NEB SOLN NEB PRN ×3 (04:34→15:45)
[2017-01-09 05:08] LABS: BASO # 0.1 K/mm3 (0.0-0.2); BASO % 0.9 % (0.0-1.0); EOS # 0.2 K/mm3 (0.0-0.50); EOS % 1.9 % (0.0-3.0); LARGE UNSTAINED CELL # 0.3 K/mm3 (0.0-0.4); LARGE UNSTAINED CELL % 2.8 % (0.0-4.0); LYMPH # 3.3 K/mm3 (1.5-4.5); LYMPH % 28.6 % (24.0-44.0); MEAN CORPUSCULAR HEMOGLOBIN 32.6 pg (27.0-33.0); MEAN CORPUSCULAR HGB CONC 33.2 g/dl (32.0-36.5); MEAN CORPUSCULAR VOLUME 98.3 fl (80.0-96.0); MONO # 0.6 K/mm3 (0.0-0.8); MONO % 5.9 % (0.0-5.0); NEUTROPHILS # 6.2 K/mm3 (1.8-7.7); NEUTROPHILS % 59.9 % (36.0-66.0); PLATELET COUNT, AUTOMATED 230 k/mm3 (150-450); RED CELL DISTRIBUTION WIDTH 13.1 % (11.5-14.5); WHITE BLOOD COUNT 10.4 K/mm3 (4.0-10.0)
[2017-01-09] MEDS: cefTRIAXone SOD 1 GM in D5W MINI-BAG PLUS 50 ML IV SCH ×2 (05:26→16:59)
[2017-01-09] MEDS: SLF 3 ML SYR IV SCH ×2 (05:26→14:14)
[2017-01-09 05:30] LABS: ALBUMIN 2.6 GM/DL (3.2-5.2); ALBUMIN/GLOBULIN RATIO 0.76 (1.00-1.93); ALKALINE PHOSPHATASE 72 U/L (45-117); ALT/SGPT 49 U/L (12-78); ANION GAP 10 MEQ/L (8-16); AST/SGOT 32 U/L (15-37); BILIRUBIN,TOTAL 1.9 MG/DL (0.2-1.0); BLOOD UREA NITROGEN 19 MG/DL (7-18); CALCIUM LEVEL 8.4 MG/DL (8.5-10.1); CARBON DIOXIDE LEVEL 23 MEQ/L (21-32); CHLORIDE LEVEL 105 MEQ/L (98-107); CREATININE FOR GFR 1.04 MG/DL (0.70-1.30); GLOMERULAR FILTRATION RATE > 60.0 (>60); GLUCOSE, FASTING 87 MG/DL (70-105); POTASSIUM SERUM 4.6 MEQ/L (3.5-5.1); SODIUM LEVEL 138 MEQ/L (136-145)
[2017-01-09] MEDS ORDERED: SPIR25TA2 PO ×2 (07:16→07:25)
[2017-01-09] MEDS ORDERED: NITR4TASL SL (07:16)
[2017-01-09] MEDS ORDERED: CARV6.25 PO ×2 (07:16→07:23)
[2017-01-09] MEDS ORDERED: THIA100TA PO (07:16)
[2017-01-09] MEDS ORDERED: VITMTA PO (07:16)
[2017-01-09] MEDS ORDERED: FOLI1TAB4 PO (07:16)
[2017-01-09] MEDS ORDERED: ENTR1TAB PO ×2 (07:16→07:24)
[2017-01-09] MEDS ORDERED: CEFD1CAP8 PO (07:28)
[2017-01-09 08:00] VITALS: BP 107/61
[2017-01-09] MEDS: THIAMINE 100 MG TAB PO SCH (08:28)
[2017-01-09] MEDS: FOLIC ACID 1 MG TAB PO SCH (08:28)
[2017-01-09] MEDS: ENOXAPARIN 40 MG/0.4 ML SYRINGE (J1650) SC SCH ×2 (08:28→08:35)
[2017-01-09] MEDS: MULTIVITAMINS/MINERALS THERAP 1 TAB PO SCH (08:28)
[2017-01-09] MEDS: ENTRESTO 24-26MG TABLET (SACUBITRIL/VALSARTAN) PO SCH (08:28)
[2017-01-09] MEDS: SPIRONOLACTONE 12.5MG PER 1/2 TABLET PO SCH (08:28)
[2017-01-09 08:31] VITALS: BP 114/69
--- NOTE | 2017-01-09 08:46 | IPN ---
DATE: 01/09/2017 Mr. Martínez tells me that he is feeling really well, dramatically improved since admission. He was able to ambulate on progressive care unit (PCU). He apparently made seven rounds around the nursing station and had no difficulty doing it. There was no paroxysmal nocturnal dyspnea or orthopnea. He did not have any VT. Vital signs: Blood pressure 114/69, heart rate has been mostly around 90. It was about 95 during my evaluation. His saturation is 97% on room air. Blood pressure systolic between 100 and 115. His fluid balance yesterday was 1 liter negative. He weighs 76.3 kg. He is alert and oriented and appropriate. I do not appreciate jugular venous pressure elevation. Lungs are clear to auscultation on the left. There are a few crackles on the right base. Heart exam reveals a regular rhythm. There is displaced precordial impulse laterally and there is a murmur at the apex, about 1 or 2 out of 6 intensity that is holosystolic in nature. I do not appreciate gallop as such. Abdomen is soft, nontender. There is no peripheral edema. Peripheral pulses are good quality. LABORATORY: Normal CBC. Normal basic metabolic panel. Albumin is 2.6 ASSESSMENT AND PLAN: Mr. Martínez is a 36-year-old man who has no significant past medical history and who presents with acute systolic/diastolic congestive heart failure. He is markedly symptomatically improved on standard medications. I believe that it is okay for the patient to be discharged home. I am going to advance the dose of carvedilol to 12.5 mg twice a day. He does not seem to have any signs of low cardiac output and I believe that he will be tolerating the medicines well. There is a desire to place a LifeVest, but I am not sure whether his insurance will allow but otherwise I believe that he can be discharged home, the arrangements by which are per Dr. De La Torre.
[2017-01-09] MEDS ORDERED: CARVedilol 12.5 MG TAB PO SCH (09:00)
[2017-01-09 12:00] VITALS: BP 92/63
--- NOTE | 2017-01-09 14:28 | IPN ---
DATE: 01/09/2017 The patient seen and examined at the bedside. The chart has been reviewed. This morning, the patient denies any chest pain, pressure, tightness, shortness of breath, lightheadedness, dizziness, nausea, vomiting, diarrhea, cough, hemoptysis. Telemetry was unremarkable. No PVCs or ventricular tachycardia noted on telemetry over the past 24 hours. Temperature 97.4, pulse 87, respiratory rate 18, blood pressure 107/61, and 96% on room air. Generally, the patient is awake, alert, oriented times three. Answering questions appropriately. No use of respiratory accessory muscles. No jugular venous distention. Lungs are clear to auscultation with fine crackles at bilateral bases. Heart: S1, S2. Sinus rhythm. Apical murmur radiating to the axilla. Abdomen is soft, nontender, nondistended. Extremities: No cyanosis, clubbing or any pitting edema. LABORATORY DATA: Have been reviewed. IMAGING STUDIES: Have been reviewed. Echocardiogram read by Dr. De La Torre on 01/06/2017 shows moderately enlarged left ventricle with severe diffuse hypokinesis, fairly depressed global left ventricular systolic function with severe diffuse hypokinesis, moderately enlarged left ventricle, ejection fraction 10-20%, PA pressure 40-50, moderate tricuspid regurgitation, moderate pulmonary hypertension, mild to moderate mitral regurgitation, mildly enlarged left atrium. ASSESSMENT AND PLAN: This is a 36-year-old male with history of alcohol abuse, family history of congestive heart failure (CHF) in his father in his 40s and grandfather on the father's side, who presented to the emergency room (ER) with ongoing dyspnea, bloody sputum for about five months with increasing lower extremity edema and no recent travel. He denied any fever, chills, chest pain, abdominal pain. Admitted for treatment for possible multifocal pneumonia. Started on intravenous (IV) ceftriaxone and azithromycin. While on azithromycin , the patient complained of diaphoresis and chest tightness, but no wheezing, stridor, rash or respiratory distress. Azithromycin has been discontinued. He was found to have cardiomegaly on CT of the chest with brain natriuretic peptide (BNP) level of 1100. The patient was started on Lasix diuresis for new onset congestive heart failure of unknown etiology. He was diuresing well with improvement in shortness of breath. Echocardiogram showed ejection fraction of 10-20% with mild to moderate mitral regurgitation and mild to moderate tricuspid regurgitation. Dr. De La Torre has been consulted from [facility] to assist in congestive heart failure (CHF) management. The patient had 13 beats of nonsustained ventricular tachycardia on telemetry 72 hours ago and has had no nonsustained ventricular tachycardia or PVCs on telemetry for the past 24 hours. Cardiac markers have been negative. No signs of acute myocardial infarction (OR). Currently on Coreg 6.25 mg twice a day and spironolactone and has diuresed well with plans for defibrillator vest at discharge. IMPRESSION: 1. Congestive heart failure with systolic dysfunction, new onset and ejection fraction of 10-20%. The patient is currently on spironolactone and Coreg and doing quite well. The patient's blood pressure has been well maintained. He has no complaints of orthostasis. Per cardiology, okay to be discharged, defibrillator vest to be arranged. At this time, patient and family service (PFS) has been consulted and Dr. De La Torre has been consulted for arrangement for the defibrillator vest at discharge. 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 I have advised him that this would place significant stress on his heart should he go back to full activity, therefore, I have advised him to proceed with Dr. De La Torre's recommendations and further evaluation prior to returning to his normal work responsibilities. 2. Multifocal community-acquired pneumonia with reaction to azithromycin with complaints of diaphoresis. The patient has been on IV ceftriaxone and may be discharged home on Omnicef. Once concern with quinolones would be prolonged QT in light of recent nonsustained ventricular tachycardia and poorly functioning systolic function with the heart 10-20%, I am reluctant to discharge him on a quinolone. The patient's respiratory panel has been negative. 3. Alcohol abuse. No signs of acute withdrawal. May have contributed to cardiomyopathy. The patient will need to be evaluated with a coronary arteriogram at some point to determine risk of ischemic heart disease. The patient has to abstain from alcohol and has decided to quit smoking and quit drinking as well. 4. Deep venous thrombosis (DVT) prophylaxis with Lovenox. DISPOSITION: At this time, the patient is medically stable; however, recommendations are for defibrillator vest. PFS has been consulted. The patient does not have prescription coverage. Will also need to help with paying for his medications. PFS has been consulted for this as well. MTDD
[2017-01-09 16:00] VITALS: BP 103/68
[2017-01-10 00:06] LABS: ORGANISM ID Not indicated. (.); SPECIMEN SOURCE Urine (.)
--- NOTE | 2017-01-20 14:58 | DSES ---
DATE OF ADMISSION: 01/05/2017 DATE OF DISCHARGE: 01/09/2017 PRIMARY DISCHARGE DIAGNOSES: 1. Congestive heart failure (CHF) with severe systolic dysfunction, new onset. Ejection fraction of 10-20%. 2. Dilated cardiomyopathy. 3. Multifocal community acquired pneumonia with reaction to azithromycin. Complains of diaphoresis. 4. Alcohol abuse. 5. Probable alcoholic cardiomyopathy. 6. Nonsustained ventricular tachycardic (V-tach). DISCHARGE MEDICATIONS: - carvedilol 6.25 mg twice a day - cefdinir 300 mg by mouth twice a day for 10 days - ENTRESTO (sacubitril/valsartan) one tablet twice a day - spironolactone 12.5 mg daily CONSULTANTS DURING THIS ADMISSION: [employer], Dr. Aguila De La Torre of the [facility]. DISCHARGE INSTRUCTIONS: 1. Defibrillator vest to be arranged by cardiology prior to discharge due to high risk of V-tach with severe systolic dysfunction, ejection fraction of 10-15%, most likely due to alcoholic dilated cardiomyopathy with episodes of nonsustained V-tach during this admission. 2. Multifocal pneumonia. The patient's primary care physician to check for complete resolution in 4-6 weeks. Referral to pulmonary if infiltrate does not resolve and the patient has ongoing symptoms. HOSPITAL COURSE: This is a 36-year-old male with a history of alcohol abuse, family history of congestive heart failure (CHF), with his father having congestive heart failure (CHF) in his 40s, and grandfather on the paternal side, who presented to the emergency room with ongoing dyspnea, blood sputum for six weeks with no recent travel. No fever, chills, chest pain, abdominal pain. He was initially admitted for multifocal pneumonia on CT of the chest. The patient was started on IV ceftriaxone and azithromycin. With two doses of azithromycin, the patient complained of diaphoresis and chest tightness, but no wheezing, stridor, rash or significant respiratory distress or respiratory failure. Azithromycin has been discontinued. The patient had significant lower extremity edema, BNP of [address] of the chest of unexplained etiology. The patient has a known history of alcohol abuse with suspicion for alcoholic cardiomyopathy. Since the patient complained of severe shortness of breath, an echocardiogram was performed which showed ejection fraction of 10-20% with episodes of nonsustained V-tach, 14 beats on telemetry. Echocardiogram confirmed and read by Dr. Aguila De La Torre, showed also a mild to moderate mitral regurgitation and mild to moderate tricuspid regurgitation with severe systolic dysfunction with ejection fraction of 10-20%. He was given Lasix intravenously, placed on fluid restriction, and strict intake and output with admission peak weight of 90.9 kg and discharge weight of 76.3 kg. The patient was continued on Lasix diuresis. Repeat chest x-ray continued to show multifocal infiltrates. He was continued on ceftriaxone. Sputum culture for the multifocal pneumonia showed normal devin present. Methicillin-resistant Staphylococcus aureus (MRSA) screen was negative and respiratory panel was also negative. Dr. Aguila De La Torre titrated his medications until the patient was euvolemic. He was stable on Coreg 6.25 twice a day and ENTRESTO one tablet twice a day and spironolactone 12.5 mg daily. Due to alcohol abuse, the patient was kept on multivitamin, thiamine and folate, and Serax as needed. He exhibited no delirium tremens symptoms or alcoholic withdrawal symptoms during his hospital stay. He remained afebrile throughout the entire admission. White count remained at 10.4 at discharge with a peak white count of 12.3. Blood culture was negative after five days. LABORATORY DATA ON DISCHARGE: White count 10.4, hemoglobin 16, hematocrit 48, platelet count of 230, sodium 138, potassium 4.6, chloride 105, bicarb 23, BUN 19, creatinine 1, glucose of 87, total bilirubin of 1.9, AST of 32, ALT of 49, alkaline phosphatase of 72. Urine legionella was negative. Urine Streptococcus pneumoniae negative. Microbiology: 01/05/2017 blood culture no growth after 5 days. Sputum culture on 01/05/2017 normal devin present. MRSA screen on 01/05 negative. Respiratory panel on 01/05 negative. FOLLOWUP INSTRUCTIONS: 1. Multiple focal pneumonia needs further evaluation. If it does not resolve, then may require pulmonary referral to rule out other causes of bilateral infiltrates. 2. The patient's alcoholic cardiomyopathy will need to be evaluated for ischemic causes. Defer to Dr. De La Torre for referral to [facility] for a coronary angiogram as well as automatic implantable cardioverter-defibrillator (AICD) placement after the patient has been optimized for three months medically. [facility]
== END 2017-01-09 17:15 | disposition home or self-care (01) | DRG 194 ==
LOC: M ED 10:45 → M ED INP 15:06 → M PCU 17:30
PROVIDERS: ADMIT Internal Medicine; ATTEND General Practice
DX: I50.21 Acute systolic (congestive) heart failure (principal); I47.2 Ventricular tachycardia; J18.9 Pneumonia, unspecified organism; F10.10 Alcohol abuse, uncomplicated; I34.0 Nonrheumatic mitral (valve) insufficiency; F17.200 Nicotine dependence, unspecified, uncomplicated

== ENCOUNTER → 2017-03-22 | Outpatient (CLI) | payer MEDICAID ==
[~2017-03-22] MED LIST: CARV6.25 PO; CEFD1CAP8 PO; ENTR1TAB PO; FOLI1TAB4 PO; NITR4TASL SL; SPIR25TA2 PO; THIA100TA PO; VITMTA PO
--- NOTE | 2017-03-22 13:00 | REP ---
Clinical: History of pneumonia . Comparison: 01/07/2017 . Technique: PA and lateral. Findings: The mediastinum and cardiac silhouette are normal. The lung rey are clear and without acute consolidation, effusion, or pneumothorax. Previous identified multifocal infiltrate/pneumonia have resolved. The skeletal structures are intact and normal. Impression: 1. No acute cardiopulmonary process. 2. Previously identified no new focal infiltrate/pneumonia have resolved. Signed by Juan Antonio Schuster MD 03/22/2017 12:51 P
[2017-03-22 18:46] LABS: BASO % 0.4 % (0.0-1.0); EOS # 0.2 10^3/uL (0.0-0.50); IMMATURE GRANULOCYTE % 0.3 % (0-0); LYMPH # 2.7 10^3/uL (1.5-4.5); LYMPH % 28.1 % (24.0-44.0); MEAN CORPUSCULAR HEMOGLOBIN 30.4 pg (27.0-33.0); MEAN CORPUSCULAR HGB CONC 32.3 g/dl (32.0-36.5); MONO # 0.8 10^3/uL (0.0-0.8); MONO % 8.3 % (0.0-5.0); NEUTROPHILS # 5.8 10^3/uL (1.8-7.7); NEUTROPHILS % 60.9 % (36.0-66.0); PLATELET COUNT, AUTOMATED 307 10^3/uL (150-450); RED CELL DISTRIBUTION WIDTH 14.8 % (11.5-14.5); WHITE BLOOD COUNT 9.6 10^3/uL (4.0-10.0)
[2017-03-22 18:56] LABS: ALBUMIN 3.7 GM/DL (3.2-5.2); ALKALINE PHOSPHATASE 135 U/L (45-117); ALT/SGPT 66 U/L (12-78); ANION GAP 7 MEQ/L (8-16); AST/SGOT 43 U/L (7-37); BILIRUBIN,TOTAL 1.4 MG/DL (0.2-1.0); BLOOD UREA NITROGEN 14 MG/DL (7-18); CALCIUM LEVEL 8.7 MG/DL (8.5-10.1); CARBON DIOXIDE LEVEL 29 MEQ/L (21-32); CHLORIDE LEVEL 105 MEQ/L (98-107); CHOLESTEROL LEVEL 181 MG/DL (<200); CREATININE FOR GFR 0.97 MG/DL (0.70-1.30); GLOMERULAR FILTRATION RATE > 60.0 (>60); GLUCOSE, FASTING 94 MG/DL (70-105); POTASSIUM SERUM 4.7 MEQ/L (3.5-5.1); SODIUM LEVEL 141 MEQ/L (136-145); TOTAL PROTEIN 7.4 GM/DL (6.4-8.2); TRIGLYCERIDES LEVEL 101 MG/DL (<150)
== END ==
LOC: M WUC 12:32
PROVIDERS: ATTEND Family Medicine
DX: Z13.220 Encounter for screening for lipoid disorders (principal); R53.83 Other fatigue; R93.8 Abnormal findings on diagnostic imaging of other specified body structures

== ENCOUNTER 2018-07-03 15:39 | Emergency (ER) | payer MEDICAID, OTHER ==
[~2018-07-03] VITALS: Ht 180.3 cm; Wt 86.4 kg
[~2018-07-03 15:39] MED LIST changes: +FOLI1TAB11 PO; -FOLI1TAB4 PO; +SPIR-10 PO; -SPIR25TA2 PO
[2018-07-03] MEDS ORDERED: ATOR40TA75 PO (15:49)
[2018-07-03] MEDS ORDERED: VENTAER PO (15:49)
[2018-07-03] MEDS ORDERED: ENTR1TAB PO (15:49)
[2018-07-03] MEDS ORDERED: [UNRECOGNIZED DRUG - CODE] PO (15:49)
[2018-07-03] MEDS ORDERED: CLOP75TA2 PO (15:50)
[2018-07-03] MEDS ORDERED: NITR0.4S14 SL (15:54)
[2018-07-03 16:09] LABS: BASO % 0.3 % (0.0-1.0); EOS # 0.2 10^3/uL (0.0-0.50); EOS % 1.4 % (0.0-3.0); HEMATOCRIT 46.5 % (42.0-52.0); HEMOGLOBIN 15.9 g/dl (13.5-17.5); LYMPH # 4.5 10^3/uL (1.5-4.5); LYMPH % 40.7 % (24.0-44.0); MEAN CORPUSCULAR HEMOGLOBIN 30.7 pg (27.0-33.0); MEAN CORPUSCULAR HGB CONC 34.2 g/dl (32.0-36.5); MEAN CORPUSCULAR VOLUME 89.8 fl (80.0-96.0); MONO # 1.1 10^3/uL (0.0-0.8); MONO % 10.1 % (0.0-5.0); NEUTROPHILS # 5.2 10^3/uL (1.8-7.7); NEUTROPHILS % 47.2 % (36.0-66.0); PLATELET COUNT, AUTOMATED 341 10^3/uL (150-450); RED BLOOD COUNT 5.18 10^6/uL (4.30-6.10); WHITE BLOOD COUNT 11.1 10^3/uL (4.0-10.0)
[2018-07-03 16:33] LABS: BLOOD UREA NITROGEN 14 MG/DL (7-18); CALCIUM LEVEL 8.9 MG/DL (8.5-10.1); CARBON DIOXIDE LEVEL 29 MEQ/L (21-32); CHLORIDE LEVEL 104 MEQ/L (98-107); CK-MB VALUE MASS < 1.0 NG/ML (<3.6); CPK CREATINE PHOSPHOKINASE 84 U/L (39-308); CREATININE FOR GFR 1.01 MG/DL (0.70-1.30); GLOMERULAR FILTRATION RATE > 60.0 (>60); GLUCOSE, FASTING 110 MG/DL (70-100); MB/CK RELATIVE INDEX 1.19 (< OR =4); SODIUM LEVEL 139 MEQ/L (136-145); TROPONIN I < 0.02 NG/ML (< 0.10)
--- NOTE | 2018-07-03 16:45 | REP ---
CHEST, SINGLE VIEW: There is no evidence of acute infiltrate. No pleural effusion is seen. The heart is normal in size. The mediastinal silhouette is unremarkable. The visualized osseous structures are intact. IMPRESSION: No acute pulmonary disease. Electronically Signed by Felice Julio MD 07/04/2018 08:29 P
[2018-07-03 17:44] LABS: NT-PRO BNP 115 PG/ML (<125)
[2018-07-03 19:21] LABS: CK-MB VALUE MASS < 1.0 NG/ML (<3.6); CPK CREATINE PHOSPHOKINASE 68 U/L (39-308); MB/CK RELATIVE INDEX 1.47 (< OR =4); TROPONIN I < 0.02 NG/ML (< 0.10)
[2018-07-04 01:01] LABS: CK-MB VALUE MASS < 1.0 NG/ML (<3.6); CPK CREATINE PHOSPHOKINASE 64 U/L (39-308); MB/CK RELATIVE INDEX 1.56 (< OR =4); TROPONIN I < 0.02 NG/ML (< 0.10)
[2018-07-04 01:30] VITALS: BP 111/62
--- NOTE | 2018-07-04 09:06 | ECGEPIP ---
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
--- NOTE | 2018-07-04 09:17 | ECGEPIP ---
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
--- NOTE | 2018-07-04 09:35 | ECGEPIP ---
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
== END 2018-07-04 02:12 | disposition home or self-care (01) ==
LOC: M ED 15:39
DX: R07.9 Chest pain, unspecified (principal); R00.1 Bradycardia, unspecified; I25.10 Atherosclerotic heart disease of native coronary artery without angina pectoris; I10 Essential (primary) hypertension; Z95.5 Presence of coronary angioplasty implant and graft; Z87.891 Personal history of nicotine dependence; F10.10 Alcohol abuse, uncomplicated; Z82.49 Family history of ischemic heart disease and other diseases of the circulatory system; Z79.82 Long term (current) use of aspirin; Z79.899 Other long term (current) drug therapy; Z88.1 Allergy status to other antibiotic agents

== ENCOUNTER → 2019-07-02 | Outpatient (REF) | payer OTHER ==
[~2019-07-02] MED LIST changes: +ASPI81TA27 PO; +ATOR40TA75 PO; +CLOP75TA2 PO; +NITR0.4S14 SL; +VENTAER PO
[2019-07-02 13:51] LABS: FREE T4 1.01 NG/DL (0.76-1.46); THYROID STIMULATING HORMONE 1.31 uIU/ML (0.358-3.740)
[2019-07-02 13:52] LABS: TOTAL 25(OH) VITAMIN D 18.1 NG/ML (30.0-100.0)
[2019-07-02 17:25] LABS: HEMOGLOBIN A1c 6.1 %
== END ==
LOC: M SFHCPLAZ 10:50
PROVIDERS: ATTEND Physician Assistant
DX: Z00.00 Encounter for general adult medical examination without abnormal findings (principal); Z13.1 Encounter for screening for diabetes mellitus; Z13.29 Encounter for screening for other suspected endocrine disorder

== ENCOUNTER → 2024-05-28 | Outpatient (CLI) | payer MEDICARE, OTHER ==
[~2024-05-28] MED LIST changes: -CEFD1CAP8 PO; +CEFD1CAP9 PO
[2024-05-28 15:42] LABS: BASO % 0.4 % (0.0-1.0); EOS # 0.1 10^3/uL (0.0-0.5); EOS % 1.5 % (0.0-3.0); HEMATOCRIT 43.1 % (42.0-52.0); HEMOGLOBIN 14.5 g/dl (13.5-17.5); LYMPH # 2.1 10^3/uL (1.5-5.0); LYMPH % 21.4 % (24.0-44.0); MEAN CORPUSCULAR HEMOGLOBIN 31.3 pg (27.0-33.0); MEAN CORPUSCULAR HGB CONC 33.6 g/dl (32.0-36.5); MEAN CORPUSCULAR VOLUME 93.1 fl (80.0-96.0); MONO # 0.9 10^3/uL (0.0-0.8); MONO % 9.7 % (2.0-8.0); NEUTROPHILS # 6.4 10^3/uL (1.5-8.5); NEUTROPHILS % 66.7 % (36.0-66.0); PLATELET COUNT, AUTOMATED 290 10^3/uL (150-450); RED BLOOD COUNT 4.63 10^6/uL (4.30-6.10); WHITE BLOOD COUNT 9.6 10^3/uL (4.0-10.0)
[2024-05-28 15:47] LABS: ALBUMIN 3.9 G/DL (3.2-5.2); ALKALINE PHOSPHATASE 64 U/L (40-129); ALT/SGPT 36 U/L (7.0-40); AST/SGOT 17 U/L (<34); BILIRUBIN,TOTAL 0.9 MG/DL (0.3-1.2); BLOOD UREA NITROGEN 20 MG/DL (9-23); C REACTIVE PROTEIN QUANTITATIV 1.48 MG/DL (<1.0); CALCIUM LEVEL 8.9 MG/DL (8.5-10.1); CARBON DIOXIDE LEVEL 27 MMOL/L (20-31); CHLORIDE LEVEL 104 MMOL/L (98-107); CHOLESTEROL LEVEL 192 MG/DL (<200); CHOLESTEROL RISK RATIO 2.94 (<5); CREATININE FOR GFR 1.05 MG/DL (0.70-1.30); GLOMERULAR FILTRATION RATE > 60.0 (>60); GLUCOSE, FASTING 95 MG/DL (60-100); HDL CHOLESTEROL 65.3 MG/DL (>40); LDL CHOLESTEROL 93.9 MG/DL (<100); NON-HDL-C 126.7 MG/DL; POTASSIUM SERUM 4.6 MMOL/L (3.5-5.1); SODIUM LEVEL 142 MMOL/L (136-145); TOTAL PROTEIN 7.2 G/DL (5.7-8.2); TRIGLYCERIDES LEVEL 164 MG/DL (<150)
[2024-05-28 15:51] LABS: CPK CREATINE PHOSPHOKINASE 142 U/L (46-171)
[2024-05-28 16:00] LABS: HEMOGLOBIN A1c 5.3 % (4.0-6.0)
== END ==
LOC: M PLALAB 12:33
PROVIDERS: ATTEND Family Medicine
DX: E78.2 Mixed hyperlipidemia (principal); I50.22 Chronic systolic (congestive) heart failure; M79.10 Myalgia, unspecified site; Z79.899 Other long term (current) drug therapy

== ENCOUNTER → 2025-03-14 | Outpatient (CLI) | payer MEDICARE, OTHER | LOC: M WUC 12:56 | PROVIDERS: ATTEND Physician Assistant Medical | DX: R06.02 Shortness of breath (principal); Z95.0 Presence of cardiac pacemaker ==